=== PATIENT | male | born 1980 | race Two or more races ===

== ENCOUNTER 2019-11-11 21:31 | Emergency (ER) | payer BC ==
[2019-11-11 21:44] VITALS: BP 170/115; PULSE 73
[2019-11-11] MEDS ORDERED: Lidocaine 1% 10 ML MDV INJECT ONE (22:25)
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
== END 2019-11-11 23:20 | disposition home or self-care (01) ==
LOC: JD.ED 21:31
DX: S61.215A Laceration without foreign body of left ring finger without damage to nail, initial encounter (principal); S61.217A Laceration without foreign body of left little finger without damage to nail, initial encounter; Z79.899 Other long term (current) drug therapy; W26.8XXA Contact with other sharp object(s), not elsewhere classified, initial encounter
CPT/HCPCS: 12002; 99282; J2001

== ENCOUNTER 2021-08-13 06:42 | Day surgery (SDC) | payer BC ==
[~2021-08-13 06:42] MED LIST: Lactated Ringers 1,000 ML IV SCH; Lidocaine 1%/Sod Bicarbonate in NS 8.4% 1 ML Syringe IDERM PRN; Sodium Chloride 0.9% 10 ML Syringe FLUSH PRN; Sodium Chloride 0.9% 10 ML Syringe FLUSH SCH
[2021-08-13] MEDS ORDERED: Lactated Ringers 1,000 ML IV SCH (07:00)
[2021-08-13] MEDS ORDERED: Propofol 200 MG/20 ML SDV ONE (07:15)
[2021-08-13] MEDS ORDERED: Midazolam 1 MG/ML 2 ML SDV ONE (07:16)
[2021-08-13] MEDS ORDERED: Lidocaine 1% 4 ML ONE (07:17)
[2021-08-13 08:54] VITALS: BP 110/58; PULSE 67
[2021-08-13] MEDS ORDERED: Lidocaine 1%/Sod Bicarbonate in NS 8.4% 1 ML Syringe IDERM ONE (11:15)
== END 2021-08-13 08:34 | disposition home or self-care (01) ==
LOC: JD.SDS 06:42
PROVIDERS: ATTEND Surgery
DX: K62.5 Hemorrhage of anus and rectum (principal); Z79.899 Other long term (current) drug therapy; L98.8 Other specified disorders of the skin and subcutaneous tissue
CPT/HCPCS: 45378; J2250; J2704; J7120